=== PATIENT | male | born 1965 | race Caucasian/White ===

== ENCOUNTER 2018-01-05 12:57 | Emergency (ER) | payer OTHER ==
[~2018-01-05 12:57] MED LIST: CLIN300C8 PO; HYDR-2678 PO; HYDR-971 PO; IBUP400T18 PO; IBUP600T16 PO
[2018-01-05 13:25] VITALS: BP 127/73
--- NOTE | 2018-01-05 14:27 | PHYS DOC ---
Past History Past Medical History: Arthritis Past Surgical History: Other Alcohol Use: Occasionally Drug Use: None Adult General Chief Complaint Chief Complaint: KNEE INJURY HPI HPI Patient is a 52 year old M who presents with knee pain and swelling over the past 3-4 days. He was started on antibiotic 2 days ago and notes 50-75% reduction in swelling and redness. He feels that his symptoms are persistent but again notes improvement. He has a history of arthritis in that knee. He has no other associated symptoms. Review of Systems Review of Systems Constitutional: Denies fever or chills [] Eyes: Denies change in visual acuity, redness, or eye pain [] HENT: Denies nasal congestion or sore throat [] Respiratory: Denies cough or shortness of breath [] Cardiovascular: No additional information not addressed in HPI [] GI: Denies abdominal pain, nausea, vomiting, bloody stools or diarrhea [] : Denies dysuria or hematuria [] Musculoskeletal: Denies back pain or joint pain [] Integument: Negative except history of present illness Neurologic: Denies headache, focal weakness or sensory changes [] Endocrine: Denies polyuria or polydipsia [] All other systems were reviewed and found to be within normal limits, except as documented in this note. Family History Family History No pertinent family medical history was reported Current Medications Current Medications Current medications reviewed Allergies Allergies Allergies Coded Allergies Type Severity Reaction Last Updated Verified Penicillins Allergy Mild Hives 11/11/15 Yes Physical Exam Physical Exam Constitutional: Well developed, well nourished, no acute distress, non-toxic appearance. [] HENT: Normocephalic, atraumatic, Eyes: EOMI, conjunctiva normal, no discharge. [] Neck: Normal range of motion, no tenderness, supple, no stridor. [] Cardiovascular:Heart rate regular rhythm, no murmur [] Lungs & Thorax: Bilateral breath sounds clear to auscultation [] Abdomen: Bowel sounds normal, soft, no tenderness, no masses, no pulsatile masses. [] Skin: Warm, dry, no erythema, mild erythema and edema over the anterior left knee Extremities: No tenderness, no cyanosis, no clubbing, ROM intact, no edema. [] No apparent joint involvement Neurologic: Alert and oriented X 3, normal motor function, normal sensory function, no focal deficits noted. [] Psychologic: Affect normal, judgement normal, mood normal. [] Current Patient Data Vital Signs Vital Signs Date Time Temp Pulse Resp B/P (MAP) Pulse Ox O2 Delivery O2 Flow Rate FiO2 01/05/18 13:25 98.3 63 16 97 Room Air EKG EKG [] Radiology/Procedures Radiology/Procedures [] Course & Med Decision Making Course & Med Decision Making Pertinent Labs and Imaging studies reviewed. (See chart for details) Risks of intra-articular joint infection were discussed. Risks include and permanent disability. Petros expressed understanding. Dragon Disclaimer Dragon Disclaimer This electronic medical record was generated, in whole or in part, using a voice recognition dictation system. Departure Departure: Impression: Primary Impression: Cellulitis Disposition: HOME, SELF-CARE Condition: STABLE Referrals: NON,STAFF (PCP) Patient Instructions: Cellulitis Additional Instructions: Petros was seen in the emergency department for knee pain. No emergency condition was found on history or physical exam. His symptoms are most consistent with cellulitis or skin infection as opposed to an infection in the joint. His symptoms have been improving over the past 2 days since and a biotics were started. His antibiotics were not changed at this time has he notes improvement. He was advised to return to the emergency room as soon as possible if he develops new or worsening symptoms. He is also advised follow-up with his primary care doctor as needed for further management. Problem Qualifiers Primary Impression: Cellulitis Site of cellulitis: extremity Site of cellulitis of extremity: lower extremity Laterality: left Qualified Codes: L03.116 - Cellulitis of left lower limb GEORGE DUDLEY MD Jan 05, 2018 14:27
== END 2018-01-05 14:36 | disposition home or self-care (01) ==
LOC: ER 12:57
DX: L03.116 Cellulitis of left lower limb (principal); M19.90 Unspecified osteoarthritis, unspecified site; Z88.0 Allergy status to penicillin
CPT/HCPCS: 99281